=== PATIENT | female | born 1955 | race Caucasian/White ===

== ENCOUNTER 2018-08-09 06:21 | Observation (INO) | payer MEDICAID, MEDICARE, OTHER, SELFPAY ==
[~2018-08-09] VITALS: Ht 160 cm; Wt 43.9 kg
[2018-08-09] MEDS ORDERED: PLEASE ENTER ALLERGIES MC SCH (07:00)
[2018-08-09] MEDS ORDERED: PLEASE ENTER HEIGHT AND WEIGHT MC SCH (07:00)
[2018-08-09] MEDS ORDERED: SODIUM CHLORIDE FLUSH 10ML SYR IVF ONE (07:00)
[2018-08-09 07:13] LABS: MEAN CORPUSCULAR HEMOGLOBIN 24.9 pg (27.0-34.8); MEAN CORPUSCULAR VOLUME 75.6 fL (80-100); PLATELET COUNT 240 x10^3/uL (130-400); RED BLOOD COUNT 5.19 x10^6/uL (3.82-5.3); RED CELL DISTRIBUTION WIDTH 14.5 % (9.6-15.2)
[2018-08-09 07:14] LABS: ALANINE AMINOTRANSFERASE 36 U/L (12-78); ALBUMIN 3.7 g/dL (3.4-5.0); ANION GAP 7 mmol/L (5-15); CALCIUM 8.6 mg/dL (8.5-10.1); CHLORIDE 107 mmol/L (98-107); CREATININE 0.67 mg/dL (0.55-1.02)
[2018-08-09 07:18] LABS: ALKALINE PHOSPHATASE 66 U/L (45-117); BILIRUBIN,TOTAL 0.3 mg/dL (0.2-1.0); TOTAL PROTEIN 7.2 g/dL (6.4-8.2); TROPONIN I < 0.015 ng/mL (0.000-0.045)
[2018-08-09] MEDS ORDERED: LORazepam 2 MG/ML, 1ML ONE (07:27)
[2018-08-09] MEDS ORDERED: ASPIRIN 81 MG TABLET CHEW ONE (07:27)
[2018-08-09] MEDS: ASPIRIN 81 MG TABLET CHEW PO ONE ×2 (07:29→07:31)
[2018-08-09] MEDS ORDERED: LORazepam 2 MG/ML, 1ML IVPush ONE (07:30)
[2018-08-09 07:33] LABS: BASOPHILS # (AUTO) 0.03 x10^3/uL (0-0.1); BASOPHILS % (AUTO) 1 % (0-1); EOSINOPHILS # (AUTO) 0.03 x10^3/uL (0-0.4); EOSINOPHILS % (AUTO) 0 % (1-7); LYMPHOCYTES % (AUTO) 23 % (22-44); MD SCAN; MONOCYTES # (AUTO) 0.47 x10^3/uL (0.2-0.8); MONOCYTES % (AUTO) 8 % (2-9); NEUTROPHILS % (AUTO) 69 % (42-75)
[2018-08-09] MEDS ORDERED: VENL37.52 PO (08:22)
[2018-08-09] MEDS ORDERED: VENL150C PO (08:22)
[2018-08-09] MEDS ORDERED: HYDR-3622 PO (08:24)
[2018-08-09] MEDS ORDERED: estradiol (08:25)
[2018-08-09] MEDS ORDERED: NITROGLYCERIN 0.4 MG BOTTLE (25 TABS) SL PRN (08:30)
[2018-08-09] MEDS ORDERED: NITROGLYCERIN 0.4 MG/SPRAY SL PRN (08:30)
[2018-08-09] MEDS ORDERED: TRAZODONE 50MG TABLET PO PRN (08:30)
[2018-08-09] MEDS: VENLAFAXINE XR 37.5MG CAP.ER.24H PO SCH ×2 (09:00→10:34)
[2018-08-09 09:51] VITALS: BP 134/79
[2018-08-09] MEDS: D5%-0.45NACL+KCL 20MEQ 1,000 ML IV SCH ×2 (11:01→20:08)
[2018-08-09 11:21] LABS: TROPONIN I < 0.015 ng/mL (0.000-0.045)
[2018-08-09] MEDS: LORazepam 1MG TABLET PO PRN ×2 (12:16→20:07)
[2018-08-09 13:01] VITALS: BP 149/70
[2018-08-09 13:25] VITALS: BP 133/85
[2018-08-09 13:52] LABS: TROPONIN I < 0.015 ng/mL (0.000-0.045)
[2018-08-09 13:57] LABS: CHOL/HDL RATIO 2.1
[2018-08-09] MEDS: HYDROcodone/APAP 5/325 TABLET PO PRN (16:11)
[2018-08-09 19:19] LABS: TROPONIN I < 0.015 ng/mL (0.000-0.045)
[2018-08-09 20:21] VITALS: BP 141/82
[2018-08-10 02:39] VITALS: BP 110/65
[2018-08-10] MEDS: D5%-0.45NACL+KCL 20MEQ 1,000 ML IV SCH (06:28)
[2018-08-10] MEDS: HYDROcodone/APAP 5/325 TABLET PO PRN (06:35)
[2018-08-10 06:58] VITALS: BP 109/69
[2018-08-10] MEDS: LORazepam 1MG TABLET PO PRN ×2 (07:27→11:45)
[2018-08-10] MEDS ORDERED: BUSP10TA PO (07:56)
[2018-08-10] MEDS: BUSPIRONE 10 MG TABLET PO SCH ×2 (09:42→15:56)
[2018-08-10] MEDS: VENLAFAXINE XR 37.5MG CAP.ER.24H PO SCH ×2 (09:42→09:43)
[2018-08-10] MEDS ORDERED: REGADENOSON 0.4 MG/5 ML SYRINGE ONE (11:39)
[2018-08-10 14:10] VITALS: BP 119/67
[2018-08-10] MEDS ORDERED: ACETAMINOPHEN 325 MG TABLET ONE (14:22)
[2018-08-10] MEDS ORDERED: ACETAMINOPHEN 325 MG TABLET PO PRN (14:30)
[2018-08-10] MEDS ORDERED: LORA-446 PO (14:43)
[2018-08-10] MEDS ORDERED: BUSPIRONE 5 MG TABLET ONE (15:55)
== END 2018-08-10 16:15 | disposition home or self-care (01) ==
LOC: ED 07:10 → EDIP 08:02 → INTOOBSV 08:02 → OBSVTOIN 08:02 → 5SO 08:48
PROVIDERS: ADMIT Internal Medicine; ATTEND Internal Medicine
DX: R07.89 Other chest pain (principal); F32.9 Major depressive disorder, single episode, unspecified; F41.0 Panic disorder [episodic paroxysmal anxiety]; G47.00 Insomnia, unspecified; J30.2 Other seasonal allergic rhinitis; G89.29 Other chronic pain; F43.21 Adjustment disorder with depressed mood; Z86.718 Personal history of other venous thrombosis and embolism; Z86.59 Personal history of other mental and behavioral disorders
CPT/HCPCS: 36415; 71045; 78452; 80053; 80061; 84484; 85025; 93005; 93017; 96374; 99284; A9502; C9898; G0378; J2060; J2785; J3480